=== PATIENT | male | born 1960 | race Caucasian/White ===

== ENCOUNTER 2017-05-09 16:09 | Inpatient (IN) | payer OTHER ==
[~2017-05-09] VITALS: Ht 175.3 cm; Wt 148.6 kg
[2017-05-09 18:12] LABS: BASOPHILS % 0.4 % (0.0-2.0); EOSINOPHILS # 0.1 10^3/ul (0.0-0.5); EOSINOPHILS % 2.3 % (0.0-7.0); HEMATOCRIT 47.1 % (42.0-52.0); HEMOGLOBIN 15.7 g/dl (14.0-18.0); LYMPHOCYTES # 1.5 10^3/ul (0.8-2.9); LYMPHOCYTES % 31.5 % (15.0-51.0); MEAN CORPUSCULAR HGB CONC 33.3 g/dl (32.0-37.0); MEAN CORPUSCULAR VOLUME 90.1 fl (82.0-101.0); MEAN PLATELET VOLUME 12.1 fl (7.4-10.4); MONOCYTE # 0.5 10^3/ul (0.3-0.9); MONOCYTES % 9.4 % (0.0-11.0); NEUTROPHIL # 2.7 10^3/ul (1.6-7.5); PLATELET COUNT 148 10^3/UL (140-415); RED BLOOD COUNT 5.23 10^6/ul (4.70-6.10); RED CELL DISTRIBUTION WIDTH 12.4 % (11.5-14.5); WHITE BLOOD COUNT 4.8 10^3/ul (4.8-10.8)
[2017-05-09 18:19] LABS: CALCIUM 9.2 mg/dl (8.4-10.2); CREATININE 1.06 mg/dl (0.61-1.24); POTASSIUM 4.2 mmol/L (3.5-5.1)
[2017-05-09] MEDS ORDERED: ACETAMINOPHEN 325 MG TAB PO PRN (18:30)
[2017-05-09] MEDS ORDERED: ONDANSETRON 4 MG INJ IV PRN (18:30)
[2017-05-09 18:31] LABS: TROPONIN-I 0.012 ng/ml (0.00-0.12)
--- NOTE | 2017-05-09 18:33 | RADRPT ---
PROCEDURE: XR Chest. CLINICAL INDICATION: Chest Pain. TECHNIQUE: Single frontal view of the chest was obtained COMPARISON: None FINDINGS: There is cardiomegaly. Mild pulmonary vascular congestion with bibasilar atelectasis is present. No focal consolidations, p leural effusions, or pneumothorax. There are mild degenerative changes of the right shoulder joint. IMPRESSION: 1. Cardiomegaly with mild pulmonary vascular congestion and bibasilar subsegmental atelectasis. RPTAT:AAJJ Jesusita Rivera Physician Date Time Electronically viewed and signed by Jesusita Rivera Physician on 05/09/2017 18:33 QL/
[2017-05-09 18:39] LABS: INR 0.95; PROTIME 12.7 Sec (12.2-14.2)
[2017-05-09 18:40] LABS: PARTIAL THROMBOPLASTIN TIME 25.1 Sec (25.0-35.0)
[2017-05-09] MEDS ORDERED: NACL 0.9% 3 ML SYG IV SCH (19:00)
--- NOTE | 2017-05-09 19:05 | HP ---
Date/Time of Note Date/Time of Note DATE: 05/09/17 TIME: 19:00 Assessment/Plan VTE Prophylaxis VTE Prophylaxis Intervention: LMWH Lines/Catheters IV Catheter Type (from Nrsg): Saline Lock Assessment/Plan Chief Complaint/Hosp Course 56 yo male with morbid obesity, recently diagnosed DMII presenting w new onset A Fib Paroxsymal A Fib: - Rate adequately controlled, will start Toprol 25 daily for now - Check TTE to assess EF - Likely will need AC at discharge, pending CHADS assessement Hypertension: - Start lisinopril 5 DMII: - Check A1C, fingersticks. Sugars wnl now so will hold off on insulin Metabolic alkalsosis: - Concern for OHS, will check ABG to assess acid base status Morbid obesity: - Nutrition consult Telemetry Problems: HPI/ROS Admit Date/Time Admit Date/Time Hx of Present Illness 56 yo male wiht morbid obesity presenting from PMD office for evaluation of A Fib Patient without previous medical history. Recently underwent work physical where told her had elevated sugars/diabetes. Established care at PMD office who found him in A Fib so referred to ED. Patient generally feels well. Has gotten over a cold over last week and symptoms are resolved except residual cough w phlegm that causes some rib/chest pain with cough. Otherwise no chest symptoms. PMH/Family/Social Past Medical History Medical History: no pertinent history Past Surgical History Past Surgical Hx: no surgical history Family History Significant Family History: no pertinent family hx Social History Alcohol Use: none Smoking Status: Never smoker Drug Use: none Exam/Review of Systems Vital Signs Vitals Vital Signs Date Time Temp Pulse Resp B/P Pulse Ox O2 Delivery O2 Flow Rate FiO2 05/09/17 18:30 92 17 132/97 100 Room Air 05/09/17 16:22 98.2 Exam Exam Morbidly obese, resting comfortably in NAD, AOx3 Obese neck but appears to have JVD Lungs clear Irreg irreg No m/r/g though difficult to auscultate Abdomen morbidly obese Ext wihtout edema Labs Result Diagram: 05/09/17 1738 05/09/17 1738 Medications Medications Current Medications Metoprolol Succinate (Toprol Xl) 25 mg DAILY PO ; Start 05/09/17 at 19:00; Status UNV TEODORO ROGERS MD May 09, 2017 19:05
--- NOTE | 2017-05-09 19:37 | ERD ---
ER Documentation Chief Complaint Chief Complaint new dx afib, sent for tx, r. foot pain s/p trauma x2 yrs, htn -meds x2wks HPI Patient is a 56-year-old male with hypertension, diabetes, and high cholesterol who presents with atrial fibrillation. The patient was sent by [facility] by Dr. Owusu for new onset atrial fibrillation on an EKG that was done in the office. The EKG shows atrial fibrillation with PVCs. He is not on anticoagulation. He is complaining of shortness of breath but no chest pain. He says that he has a "cold". He is not on anticoagulation at this time and the doctor wanted him to be admitted for workup and anticoagulation initiation. ROS All systems reviewed and are negative except as per history of present illness. Allergies Allergies: Coded Allergies: No Known Allergy (Unverified , 05/09/17) PMhx/Soc History of Surgery: No Anesthesia Reaction: No Hx Neurological Disorder: No Hx Respiratory Disorders: No Hx Cardiac Disorders: Yes (HTN, HIGH CHOLESTEROL) Hx Psychiatric Problems: No Hx Miscellaneous Medical Probl: Yes (DM) Hx Alcohol Use: No Hx Substance Use: No Hx Tobacco Use: No Smoking Status: Never smoker FmHx Family History: No coronary disease Physical Exam Vitals Vital Signs Date Time Temp Pulse Resp B/P Pulse Ox O2 Delivery O2 Flow Rate FiO2 05/09/17 18:30 92 17 132/97 100 Room Air 05/09/17 16:37 48 05/09/17 16:22 98.2 40 20 170/131 96 Physical Exam Const: No acute distress Head: Atraumatic Eyes: Normal Conjunctiva ENT: Normal External Ears, Nose and Mouth. Neck: Full range of motion..~ No meningismus. Resp: Clear to auscultation bilaterally Cardio: Normal rate with irregular rhythm Abd: Soft, non tender, non distended. Normal bowel sounds Skin: No petechiae or rashes Back: No midline or flank tenderness Ext: No cyanosis, or edema Neur: Awake and alert Psych: Normal Mood and Affect Result Diagram: 05/09/17173705/09/178 Results 24 hrs Laboratory Tests Test 05/09/17 17:38 White Blood Count 4.810^3/ul Red Blood Count 5.2310^6/ul Hemoglobin 15.7g/dl Hematocrit 47.1% Mean Corpuscular Volume 90.1fl Mean Corpuscular Hemoglobin 30.0pg Mean Corpuscular Hemoglobin Concent 33.3g/dl Red Cell Distribution Width 12.4% Platelet Count 26860^3/UL Mean Platelet Volume 12.1fl Neutrophils % 56.0% Lymphocytes % 31.5% Monocytes % 9.4% Eosinophils % 2.3% Basophils % 0.4% Nucleated Red Blood Cells % 0.0/100WBC Neutrophils # 2.710^3/ul Lymphocytes # 1.510^3/ul Monocytes # 0.510^3/ul Eosinophils # 0.110^3/ul Basophils # 0.010^3/ul Nucleated Red Blood Cells # 0.010^3/ul Prothrombin Time 12.7Sec Prothrombin Time Ratio 1.0 INR International Normalized Ratio 0.95 Activated Partial Thromboplast Time 25.1Sec Sodium Level 145mmol/L Potassium Level 4.2mmol/L Chloride Level 104mmol/L Carbon Dioxide Level 34mmol/L Anion Gap 11 Blood Urea Nitrogen 11mg/dl Creatinine 1.06mg/dl Glucose Level 123mg/dl Calcium Level 9.2mg/dl Troponin I 0.012ng/ml Current Medications Medications (Trade) Dose Ordered Sig/Maria Ines Route PRN Reason Start Time Stop Time Status Last Admin Dose Admin Ondansetron HCl (Zofran Inj) 4 mg ER BRIDGE PRN IV NAUSEA AND/OR VOMITING 05/09/17 18:30 05/10/17 18:29 Acetaminophen (Tylenol Tab) 650 mg ER BRIDGE PRN PO MILD PAIN/FEVER 05/09/17 18:30 05/10/17 18:29 Metoprolol Succinate (Toprol Xl) 25 mg DAILY PO 05/09/17 19:00 IV Flush (NS 3 ml) 3 ml PER PROTOCOL IV 05/09/17 19:00 Lisinopril (Zestril) 5 mg DAILY PO 05/09/17 19:30 Procedures/MDM EKG read by me: Rate/Rhythm: Atrial Fibrillation with multiple PVCs Intervals: Normal Impression: Atrial fibrillation with PVCs PROCEDURE: XR Chest. CLINICAL INDICATION: Chest Pain. TECHNIQUE: Single frontal view of the chest was obtained COMPARISON: None FINDINGS: There is cardiomegaly. Mild pulmonary vascular congestion with bibasilar atelectasis is present. No focal consolidations, pleural effusions, or pneumothorax. There are mild degenerative changes of the right shoulder joint. IMPRESSION: 1. Cardiomegaly with mild pulmonary vascular congestion and bibasilar subsegmental atelectasis. RPTAT:AAJJ Jesusita Rivera Physician Date Time Electronically viewed and signed by Jesusita Rivera Physician on 05/09/2017 18:33 Patient is a 56-year-old male who presents with new onset atrial fibrillation. The patient will be admitted to the panel team as his doctor from the outpatient facility sent him to the ER for workup and admission. The patient had basic laboratory studies done. He will be started on anticoagulation by the panel team. Dr. Lomax has come to the bedside to admit him to a telemetry bed. At this point I doubt acute coronary syndrome, pneumonia, pneumothorax, or pulmonary embolism. Departure Diagnosis: Primary Impression: New onset a-fib Additional Impression: Irregular heartbeat Condition: RADAMES Walton MD May 09, 2017 19:37
[2017-05-09] MEDS ORDERED: LISI20TA11 PO (20:22)
[2017-05-09] MEDS ORDERED: AMLO5TAB4 PO (20:22)
[2017-05-09] MEDS: METOPROLOL (XL) 25 MG TAB PO SCH (20:34)
[2017-05-09] MEDS: LISINOPRIL 5 MG TAB PO SCH (20:34)
[2017-05-09 20:48] LABS: AADO2 Arterial 37.3 mmHg (7.0-24.0); Allen Test ACCEPTAB; Arterial Base Excess -0.6 mmol/L (-3.0-3); Arterial COHb 0.3 % (0.0-3.0); Arterial Fraction of Oxyhgb 92.7 % (93.0-99.0); Arterial HCO3 23.9 mmol/L (22.0-26.0); Arterial MetHb 0.1 % (0.0-1.5); Arterial Total Hemglobin 16.1 g/dl (12.0-18.0); MODE ROOM AIR
[2017-05-10] VITALS (8 sets, daily range): BP systolic 163–187; BP diastolic 102–108; PULSE 69–81; RESP 20–22; TEMP 97.9
[2017-05-10 00:10] LABS: TROPONIN-I 0.017 ng/ml (0.00-0.12)
[2017-05-10 00:11] LABS: CK-MB 1.37 ng/ml (0.0-2.4)
[2017-05-10 05:59] LABS: BASOPHILS % 0.4 % (0.0-2.0); EOSINOPHILS # 0.2 10^3/ul (0.0-0.5); EOSINOPHILS % 2.8 % (0.0-7.0); HEMOGLOBIN 14.9 g/dl (14.0-18.0); LYMPHOCYTES # 1.5 10^3/ul (0.8-2.9); LYMPHOCYTES % 28.5 % (15.0-51.0); MEAN CORPUSCULAR HEMOGLOBIN 29.7 pg (29.0-33.0); MEAN CORPUSCULAR HGB CONC 33.1 g/dl (32.0-37.0); MEAN CORPUSCULAR VOLUME 89.8 fl (82.0-101.0); MEAN PLATELET VOLUME 11.5 fl (7.4-10.4); MONOCYTE # 0.6 10^3/ul (0.3-0.9); MONOCYTES % 10.2 % (0.0-11.0); NEUTROPHIL # 3.1 10^3/ul (1.6-7.5); NEUTROPHILS % 57.5 % (39.0-77.0); PLATELET COUNT 167 10^3/UL (140-415); RED BLOOD COUNT 5.01 10^6/ul (4.70-6.10); RED CELL DISTRIBUTION WIDTH 12.8 % (11.5-14.5); WHITE BLOOD COUNT 5.4 10^3/ul (4.8-10.8)
[2017-05-10 06:34] LABS: ALBUMIN 3.7 g/dl (3.3-4.9); ALBUMIN/GLOBULIN RATIO 1.15; BILIRUBIN,INDIRECT 0.4 mg/dl (0-1.1); BILIRUBIN,TOTAL 0.4 mg/dl (0.2-1.3); CALCIUM 8.8 mg/dl (8.4-10.2); CREATININE 1.06 mg/dl (0.61-1.24); MAGNESIUM 1.9 mg/dl (1.7-2.5); POTASSIUM 3.6 mmol/L (3.5-5.1); TOTAL PROTEIN 6.9 g/dl (6.1-8.1)
[2017-05-10 06:38] LABS: TROPONIN-I 0.019 ng/ml (0.00-0.12)
[2017-05-10 06:43] LABS: T3 UPTAKE 30.8 % (23.5-40.5)
[2017-05-10 06:47] LABS: CK-MB 1.25 ng/ml (0.0-2.4)
[2017-05-10] MEDS: LISINOPRIL 5 MG TAB PO SCH (08:31)
[2017-05-10] MEDS: METOPROLOL (XL) 25 MG TAB PO SCH (09:49)
[2017-05-10] MEDS ORDERED: INFLUENZA VIRUS VACCINE 0.5 ML SYG IM* ONE (10:00)
[2017-05-10] MEDS ORDERED: FUROSEMIDE 20 MG INJ IV ONE (11:30)
--- NOTE | 2017-05-10 15:36 | RADRPT ---
Echocardiogram Report Patient Name: JN HAGAN Gender: Male Date: 1960 Study Date: 10-May-2017 Cfo Controller: Blanka [facility] Location: 3301 Ref. Physician: TEODORO ROGERS Quality: Technically Difficult Study Procedures: Transthoracic echocardiogram with complete 2D, M-Mode, and doppler examination. Indications: New onset a-fib. 2D/M Mode Doppler Measurement Value Normal Ranges Measurement Value Normal Ranges LVIDd 2D 7.6 3.5 - 5.6 cm AV Peak Jl 1.9 m/sec LVIDs 2D 5.6 2.1 - 4.1 cm AV Peak PG 14.0 mmHg FS 2D 26.4 % LVOT Peak Jl 1.3 m/sec LVPWd 2D 1.5 0.6 - 1.1 cm LVOT Peak PG 7.0 mmHg IVSd 2D 1.5 0.6 - 1.1 cm MV E Peak Jl 1.3 m/sec IVS/LVPW 2D 1.0 MV Decel Time 232 msec AoR Diam 2D 3.8 2.0 - 3.7 cm MR Peak PG 126.0 mmHg LA/Ao 2D 2 0 - 1 MR Peak Jl 5.6 m/sec EDV 2D 446.0 cm3 TR Peak Jl 3.2 m/sec ESV 2D 178.0 cm3 TR Peak PG 41.0 mmHg LA Dimen 2D 6.1 2.3 - 4.0 cm RVSP 49.0 mmHg Findings Left Ventricle: Moderate concentric left ventricular hypertrophy. Moderate enlargement of left ventricle cavity. Mild global left ventricular systolic dysfunction. Ejection fraction is visually estimated at 40 %. Right Ventricle: Normal right ventricular size. Normal right ventricular systolic function. Left Atrium: There is moderate enlargement of left atrium. Right Atrium: The right atrium is normal in size. Mitral Valve: Mild mitral leaflet calcification. Mild mitral annular calcification. Mild mitral valve regurgitation. Aortic Valve: Normal appearance of the aortic valve. No significant aortic stenosis or insufficiency. Tricuspid Valve: Normal appearance of the tricuspid valve. Estimated peak PA systolic pressure 41 mmHg. There is mild tricuspid regurgitation. Pulmonic Valve: Pulmonic valve not well visualized. There is mild pulmonic regurgitation. Pericardium: Normal pericardium with no significant pericardial effusion. Aorta: Normal aortic root. IVC: The IVC is not well visualized. Conclusions 1.Moderate concentric left ventricular hypertrophy. Moderate enlargement of left ventricle cavity. Mild global left ventricular systolic dysfunction. Ejection fraction is visually estimated at 40 % with beat to beat variation due to underlying atrial fibrillation. 2.Mild mitral valve regurgitation. 3.Estimated peak PA systolic pressure 41 mmHg plus RA pressure. Electronically Signed By: Braxton Wolf 10-May-2017 15:35:39 -0800 Patient Name: JN HAGAN Study Date: 10-May-2017 [id number]
[2017-05-10] MEDS ORDERED: LISI20TA11 PO (15:54)
[2017-05-10] MEDS ORDERED: RIVA20TA PO (15:54)
[2017-05-10] MEDS ORDERED: MTF1000T PO (15:54)
[2017-05-10] MEDS ORDERED: METO-319 PO (15:54)
[2017-05-10] MEDS ORDERED: AMLO5TAB4 PO (15:54)
--- NOTE | 2017-05-10 16:04 | PDOCDIS ---
Discharge Instructions DIAGNOSIS Discharge Diagnosis Atrial fibrilation Congestive heart failure Diabetes CONDITION Patient Condition: Fair HOME CARE INSTRUCTIONS: Diet Instructions: Reduced Calorie FOLLOW UP/APPOINTMENTS Follow-up Plan It is extremely important for you to take your medications as prescribed, which have been sent to [facility] in [place] You MUST see a doctor within the next 1-2 weeks and have your blood work checked. You have been diagnosed with two new conditions: Atrial fibrillation and congestive heart failure. For atrial fibrillation, you have been prescribed a blood thinner called Xarelto to take everyday in order to prevent stroke For your heart disease, you have been prescribed Metoprolol You should continue taking lisinopril and amlodipine for you high blood pressure , and metformin for your diabetes It is extremely important to understand these are lifelong conditions that will require daily medications and checkups with your doctor for the rest of your life Return to the hospital if you have any problems with breathing, chest pain, or any other concernign symptoms You must also make an appointment to see a silo erector within the coming weeks. TEODORO ROGERS MD May 10, 2017 16:04
--- NOTE | 2017-05-10 16:07 | DS ---
Date/Time of Note Date/Time of Note DATE: 05/10/17 TIME: 16:04 Discharge Summary Admission/Discharge Info Admit Date/Time May 09, 2017 at 18:09 Discharge Date/Time Discharge Diagnosis Atrial fibrilation Congestive heart failure Diabetes Patient Condition: Fair Hx of Present Illness 56 yo male wiht morbid obesity presenting from PMD office for evaluation of A Fib Patient without previous medical history. Recently underwent work physical where told her had elevated sugars/diabetes. Established care at PMD office who found him in A Fib so referred to ED. Patient generally feels well. Has gotten over a cold over last week and symptoms are resolved except residual cough w phlegm that causes some rib/chest pain with cough. Otherwise no chest symptoms. Hospital Course 56 yo male with morbid obesity, recently diagnosed DMII presenting w new onset A Fib The patient was found to be in atrial fibrillation with normal heart rates. He was started on Xarelto for this at time of discharge. He was hypertensive and given lisinopril and Toprol. He will continue with lisinopril 20, amlodipine 10 as an outpatient as well. His TTE showed mild global sysotlic dysfunction wtih EF 40% and concentric LVH suggestive of hypertensive heart disease. He was counseled on the need for lifelong therapy to control his blood pressure, as well as anticoagulation for his diabetes. He was advised to change his diet in order to lose weight and to become more active he will follow up in the coming days with his PMD and establish care with a lamp decorator Home Meds Reported Medications Lisinopril* (Lisinopril*) 20 Mg Tablet, 20 MG PO BID, #30 TAB 05/09/17 Amlodipine Besylate* (Norvasc*) 5 Mg Tablet, 10 MG PO DAILY, TAB 05/09/17 Follow-up Plan It is extremely important for you to take your medications as prescribed, which have been sent to [facility] in [place] You MUST see a doctor within the next 1-2 weeks and have your blood work checked. You have been diagnosed with two new conditions: Atrial fibrillation and congestive heart failure. For atrial fibrillation, you have been prescribed a blood thinner called Xarelto to take everyday in order to prevent stroke For your heart disease, you have been prescribed Metoprolol You should continue taking lisinopril and amlodipine for you high blood pressure , and metformin for your diabetes It is extremely important to understand these are lifelong conditions that will require daily medications and checkups with your doctor for the rest of your life Return to the hospital if you have any problems with breathing, chest pain, or any other concernign symptoms You must also make an appointment to see a lamp decorator within the coming weeks. Primary Care Provider Not On Staff Doctor Time spent on discharge: > 30 minutes Pending Labs Laboratory Tests Test 05/09/17 17:38 05/09/17 18:59 05/09/17 23:35 05/10/17 05:17 White Blood Count 4.810^3/ul (4.8-10.8) 5.410^3/ul (4.8-10.8) Red Blood Count 5.2310^6/ul (4.70-6.10) 5.0110^6/ul (4.70-6.10) Hemoglobin 15.7g/dl (14.0-18.0) 14.9g/dl (14.0-18.0) Hematocrit 47.1% (42.0-52.0) 45.0% (42.0-52.0) Mean Corpuscular Volume 90.1fl (82.0-101.0) 89.8fl (82.0-101.0) Mean Corpuscular Hemoglobin 30.0pg (29.0-33.0) 29.7pg (29.0-33.0) Mean Corpuscular Hemoglobin Concent 33.3g/dl (32.0-37.0) 33.1g/dl (32.0-37.0) Red Cell Distribution Width 12.4% (11.5-14.5) 12.8% (11.5-14.5) Platelet Count 09752^3/UL (140-415) 22362^3/UL (140-415) Mean Platelet Volume 12.1fl (7.4-10.4) 11.5fl (7.4-10.4) Neutrophils % 56.0% (39.0-77.0) 57.5% (39.0-77.0) Lymphocytes % 31.5% (15.0-51.0) 28.5% (15.0-51.0) Monocytes % 9.4% (0.0-11.0) 10.2% (0.0-11.0) Eosinophils % 2.3% (0.0-7.0) 2.8% (0.0-7.0) Basophils % 0.4% (0.0-2.0) 0.4% (0.0-2.0) Nucleated Red Blood Cells % 0.0/100WBC (0.0-0.0) 0.0/100WBC (0.0-0.0) Neutrophils # 2.710^3/ul (1.6-7.5) 3.110^3/ul (1.6-7.5) Lymphocytes # 1.510^3/ul (0.8-2.9) 1.510^3/ul (0.8-2.9) Monocytes # 0.510^3/ul (0.3-0.9) 0.610^3/ul (0.3-0.9) Eosinophils # 0.110^3/ul (0.0-0.5) 0.210^3/ul (0.0-0.5) Basophils # 0.010^3/ul (0.0-0.1) 0.010^3/ul (0.0-0.1) Nucleated Red Blood Cells # 0.010^3/ul (0.0-0.0) 0.010^3/ul (0.0-0.0) Prothrombin Time 12.7Sec (12.2-14.2) Prothrombin Time Ratio 1.0 INR International Normalized Ratio 0.95 Activated Partial Thromboplast Time 25.1Sec (25.0-35.0) Sodium Level 145mmol/L (135-144) 147mmol/L (135-144) Potassium Level 4.2mmol/L (3.5-5.1) 3.6mmol/L (3.5-5.1) Chloride Level 104mmol/L (97-110) 105mmol/L (97-110) Carbon Dioxide Level 34mmol/L (21-31) 32mmol/L (21-31) Anion Gap 11 (8-16) 14 (8-16) Blood Urea Nitrogen 11mg/dl (7-20) 9mg/dl (7-20) Creatinine 1.06mg/dl (0.61-1.24) 1.06mg/dl (0.61-1.24) Glucose Level 123mg/dl (70-220) 129mg/dl (70-220) Calcium Level 9.2mg/dl (8.4-10.2) 8.8mg/dl (8.4-10.2) Troponin I 0.012ng/ml (0.00-0.12) 0.017ng/ml (0.00-0.12) 0.019ng/ml (0.00-0.12) Blood Gas Specimen Source Blood arterial Arterial Blood Date Drawn 05/09/2017 8:43:30 PM Arterial Blood pH (Temp corrected) 7.405 (7.350-7.450) Arterial Blood pCO2 (Temp correct) 39.0mmhg (35-45) Arterial Blood pO2 (Temp corrected) 65.7mmHG (80-100.0) Arterial Blood HCO3 23.9mmol/L (22.0-26.0) Arterial Blood Base Excess -0.6mmol/L (-3.0-3) Arterial Blood Oxygen Saturation 93.1mmHG (95.0-98.0) Juni Test ACCEPTAB Arterial Blood Gas Puncture Site Right Radial Arterial Blood Carboxyhemoglobin 0.3% (0.0-3.0) Arterial Blood Methemoglobin 0.1% (0.0-1.5) Blood Gas A-a O2 Differential 37.3mmHg (7.0-24.0) Oxyhemoglobin Percent 92.7% (93.0-99.0) Total Hemoglobin 16.1g/dl (12.0-18.0) Blood Gas Temperature 37.0C Blood Gas Modality ROOM AIR FiO2 21.0% Blood Gas Notified Whom BR Blood Gas Notified Time 05/09/2017 8:47:57 PM Creatine Kinase 112IU/L (23-200) 99IU/L (23-200) Creatine Kinase Index 1.2 1.3 Creatinine Kinase MB (Mass) 1.37ng/ml (0.0-2.4) 1.25ng/ml (0.0-2.4) Hemoglobin A1c 8.3% (0-5.9) Phosphorus Level 4.0mg/dl (2.5-4.9) Magnesium Level 1.9mg/dl (1.7-2.5) Total Bilirubin 0.4mg/dl (0.2-1.3) Direct Bilirubin 0.00mg/dl (0.00-0.20) Indirect Bilirubin 0.4mg/dl (0-1.1) Aspartate Amino Transf (AST/SGOT) 23IU/L (15-46) Alanine Aminotransferase (ALT/SGPT) 38IU/L (13-69) Alkaline Phosphatase 59IU/L (42-121) B-Type Natriuretic Peptide 494PG/ML (0-125) Total Protein 6.9g/dl (6.1-8.1) Albumin 3.7g/dl (3.3-4.9) Globulin 3.20g/dl (1.3-3.2) Albumin/Globulin Ratio 1.15 Free Thyroxine Index 3.79ug/ml (0.65-3.89) Thyroxine (T4) 12.3ug/dl (5.5-11.0) Triiodothyronine (T3) Uptake 30.8% (23.5-40.5) Test 05/10/17 12:26 Bedside Glucose 126mg/dL (70-220) TEODORO ROGERS MD May 10, 2017 16:06
== END 2017-05-10 18:15 | disposition home or self-care (01) | DRG 309 ==
LOC: E/R 16:09 → MS3 18:09
PROVIDERS: ADMIT Internal Medicine; ATTEND Internal Medicine
DX: I48.91 Unspecified atrial fibrillation (principal); Z68.42 Body mass index [BMI] 45.0-49.9, adult; E87.3 Alkalosis; I11.0 Hypertensive heart disease with heart failure; I50.20 Unspecified systolic (congestive) heart failure; E11.9 Type 2 diabetes mellitus without complications; E66.01 Morbid (severe) obesity due to excess calories
CPT/HCPCS: 36415; 36600; 71010; 80048; 80053; 82550; 82553; 82803; 82962; 83036; 83735; 83880; 84100; 84436; 84479; 84484; 85025; 85610; 85730; 90686; 93005; 93306; J1940

== ENCOUNTER 2017-05-16 14:18 | Outpatient (CLI) | payer OTHER ==
[~2017-05-16] VITALS: Ht 175.3 cm; Wt 145.9 kg
[~2017-05-16 14:18] MED LIST: AMLO5TAB4 PO; LISI20TA11 PO; METO-319 PO; MTF1000T PO; RIVA20TA PO
[2017-05-16 15:01] VITALS: Ht 175.3 cm; Wt 145.9 kg
[2017-05-16 15:04] VITALS: BP 137/90; PULSE 54; RESP 20
--- NOTE | 2017-05-16 16:02 | PN ---
Date/Time of Note Date/Time of Note DATE: 05/16/17 TIME: 15:58 Outpatient Progress Note Chief Complaint A. fib/hypertension/diabetes/morbid obesity HPI A. fib/patient was recently admitted with the A. fib with rapid response, patient had a new onset of A. fib, patient on medication, no palpitation, no dizziness, no syncope, no bruises, Hypertension/no headache or dizziness, Diabetes/no polyps or polyuria hypoglycemia, Morbid obesity/outpatient is morbidly obese, no hypothyroidism, no endocrine disease, Review of Systems Const: No Fever, no chills, no Wt. loss, no Fatigue, normal appetite, no diaphoresis. Eyes: No pain, no discharge, no redness, no visual change, no foreign body. ENT: No pain, no bleeding, no congestion, no sore throat, no dysphagia, no discharge or rhinitis. Lymph: No adenopathy, no tender nodes, no lymphedema. Resp: No SOB, no cough, no sputum, no wheezing, no chest pain. CV: No chest pain, no palpitaions, no LISA, no PND, no edema. GI: Normal appetite, no pain, no nausea, no vomiting, no diarrhea, no blood, no constipation. : No frequency, no urgency, no dysuria, no hematuria, no flank pain, no discharge, no bleeding. Musc: No bone/joint pain, no back pain, no neck pain, no knee pain, no restricted ROM. Skin: No rash, no skin lesions, no erythema, no laceration, no bruising, no pruritus. Neuro: No BRITTON, no dizziness, no syncope, no seizure, no focal-weakness. Endo: No polyuria, no polydypsia, no dry-skin, no temp-intolerance. Psych: No hallucinations, no depression, no anxiety, no suicidal ideation. Ext: No edema, no pain, no ulcer, no weakness. Physical Exam Vital Signs Date Time Temp Pulse Resp B/P Pulse Ox O2 Delivery O2 Flow Rate FiO2 05/16/17 15:04 98.2 54 20 137/90 95 Room Air General Appearance: A 56 year-old male who appears well-developed, well- nourished, in no acute distress. HEENT: Head normocephalic, atraumatic. Pupils equal, round, reactive to light and accommodate. Sclerae are no jaundice. Nasal turbinates pink without erythema or nasal discharge. Mucous membranes pink and moist without lesions. Oropharynx clear without any exudate or discharge. NECK: Supple. Trachea midline, No thyromegaly, No cervical lymphadenopathy, No mass, No carotid bruits, No JVD, Carotid pulses 2+ bilaterally. PULMONARY: Clear to auscultaion bilaterally, No retractions, Chest expansion symmetric bilaterally, no rales, no ronchi, no dulness on percussion. CARDIAC: Normal SI and S2, iRegular rate and rythm, no murmur, gallop, or rub. GASTROINTESTINAL: Abdomen is soft, non-tender, Non Rigid, No distention, Positive bowel sounds x4 quadrants, Liver normal. SKIN: Warm, dry, no rash, no bruise, no echmosis. EXTREMITIES: Bilateral lower extremities normal, no edema, no phlabitus, pulse palpable, no contracture. MUSCULOSKELETAL: Spine Normal, Non-tender, Normal range of motion, No swelling, no deformity, no clubbing, or cyanosis, the patient has no edema to bilateral lower extremities, dorsalis pedis pulses palpable bilaterally. NEUROLOGIC: The patient is awake, alert, oriented, responding to yes/no questions appropriately, moving all extremities, cranial nerve intact, normal strenght, normal power, normal coordination, normal gait. Allergies Coded Allergies: No Known Allergy (Unverified , 05/09/17) PMH Diabetes/hypertension/morbid obesity/new onset of A. fib/metabolic alkalosis resolved Social Hx No smoking no drinking, Family Hx Noncontributory Assessment/Plan Impression New onset of A. fib Hypertension Diabetes Morbid obesity Plan Patient education done about his condition and prognosis, Patient encouraged to follow with the primary care physician, Patient has all the medication, patient encouraged to increase activity slowly, control the heart rate, control the blood pressure, control the blood sugar, and risk of all this condition explained, Patient has all the medication, patient does not need any refill, Medications Home Meds Active Scripts Metformin* (Glucophage*) 1,000 Mg Tablet, 1000 MG PO BID for 60 Days, #120 TAB Prov:TEODORO ROGERS MD 05/10/17 Metoprolol Succinate* (Toprol XL*) 50 Mg Tab.er.24h, 50 MG PO DAILY for 60 Days , #60 TAB Prov:TEODORO ROGERS MD 05/10/17 Rivaroxaban* (Xarelto*) 20 Mg Tablet, 20 MG PO WITH DINNER for 60 Days, #60 TAB Prov:TEODORO ROGERS MD 05/10/17 Lisinopril* (Lisinopril*) 20 Mg Tablet, 20 MG PO DAILY, #30 TAB Prov:TEODORO ROGERS MD 05/10/17 Amlodipine Besylate* (Norvasc*) 5 Mg Tablet, 5 MG PO DAILY for 30 Days, #30 TAB Prov:TEODORO ROGERS MD 05/10/17 JESSIKA BEYER MD May 16, 2017 16:02
== END 2017-05-16 16:41 | disposition home or self-care (01) ==
LOC: DCC 14:18
PROVIDERS: ATTEND Internal Medicine
DX: I48.91 Unspecified atrial fibrillation (principal); I10 Essential (primary) hypertension; E11.9 Type 2 diabetes mellitus without complications; E66.01 Morbid (severe) obesity due to excess calories; Z68.42 Body mass index [BMI] 45.0-49.9, adult
CPT/HCPCS: G0463